=== PATIENT | female | born 1970 | race African-American/Black ===

== ENCOUNTER 2025-05-12 04:18 | Emergency (ER) | payer OTHER ==
[~2025-05-12] VITALS: Ht 157.5 cm; Wt 81.6 kg
[2025-05-12 04:48] VITALS: TEMP 98.2
[2025-05-12 05:00] VITALS: BP 130/86
[2025-05-12] MEDS ORDERED: TDAP [DIPH/PERTUSSIS/TET] 0.5 ML VIAL IM ONE (05:28)
[2025-05-12] MEDS: TDAP [DIPH/PERTUSSIS/TET] 0.5 ML VIAL IM ONE (05:41)
[2025-05-12 05:48] VITALS: O2SAT 96
== END 2025-05-12 05:50 | disposition home or self-care (01) ==
LOC: ER 04:23
DX: S61.012A Laceration without foreign body of left thumb without damage to nail, initial encounter (principal); Z60.2 Problems related to living alone; W26.0XXA Contact with knife, initial encounter; Y93.G1 Activity, food preparation and clean up; Y92.89 Other specified places as the place of occurrence of the external cause; Y99.8 Other external cause status
CPT/HCPCS: 90715